=== PATIENT | female | born 1995 | race Hispanic/Latino ===

== ENCOUNTER 2024-04-16 06:48 | Emergency (ER) | payer BC ==
[2024-04-16] MEDS ORDERED: NA CHLORIDE 0.9% 1,000 ML ONE (07:36)
[2024-04-16 07:38] LABS: Absolute Eosinophils 0.1 K/uL (0-0.5); Absolute Lymphocytes (CBC) 2.7 K/uL (0.7-4.9); Absolute Monocytes 0.6 K/uL (0.1-1.3); Absolute Neutrophil 4.1 K/uL (1.8-8.0); Basophils % 0.6 % (0-1.3); Eosinophils % 1.9 % (0-4.4); Hematocrit 40.1 % (36.0-45.0); Hemoglobin 12.6 g/dL (12.0-15.0); Lymphocytes % 35.4 % (15.3-44.8); MCH 24.2 pg (27.0-35.0); MCHC 31.6 g/dL (32.0-36.0); MCV 76.6 fL (80-100); MPV 7.5 fL (7.6-11.3); Monocytes % 8.1 % (3.3-12.3); Platelets 370 thou/uL (152-406); RBC Red Blood Cell Count 5.23 M/uL (3.86-4.86); Red Cell Distribution Width 17.3 % (12.1-15.2)
[2024-04-16 07:48] LABS: Specific Gravity 1.014 (1.005-1.030); Urine Bilirubin NEGATIVE (Negative); Urine Blood Negative (Negative); Urine Clarity Clear (Clear); Urine Color Light-Yellow (Yellow); Urine Glucose NEGATIVE (Negative); Urine Ketones NEGATIVE (Negative); Urine Microscopic Reflex YN NO UMIC; Urine Nitrite NEGATIVE (Negative); Urine Protein NEGATIVE (Negative); Urine Urobilinogen Normal (Normal); Urine pH 7.5 (5.0-7.0)
[2024-04-16 07:49] LABS: Specific Gravity 1.014 (1.005-1.030)
[2024-04-16 07:54] LABS: Albumin 3.5 g/dL (3.4-5.0); Albumin/Globulin Ratio 0.8 (1.1-1.8); Anion Gap 8.3 mEq/L (5.0-15.0); Bilirubin Total 0.5 mg/dL (0.2-1.0); Globulin 4.3 g/dL (2.3-3.5); Potassium 3.3 mEq/L (3.5-5.1); Protein, Total 7.8 g/dL (6.4-8.2)
--- NOTE | 2024-04-16 08:23 | EDPHYS ---
Physician Documentation [facility] Name: Olivia Hawk Age: 28 yrs Sex: Female : 1995 Arrival Date: 04/16/2024 Time: 06:48 Bed 18 Private MD: ED Physician To Fung HPI: 04/16 07:25 This 28 yrs old Female presents to ER via Ambulatory with complaints of Nausea.rn 07:26 The patient presents to the emergency department with nausea. Onset: The rn symptoms/episode began/occurred 3 day(s) ago. Possible causes: unknown. The symptoms are aggravated by nothing. The symptoms are alleviated by nothing. Severity of symptoms: At their worst the symptoms were mild in the emergency department the symptoms are unchanged. The patient has not experienced similar symptoms in the past. Patient reports 3 days of feeling nauseous, no vomiting, no abdominal pain. Associated with very slight cough but states getting over a viral illness since 2 weeks ago. Does not feel sick. No fever. No chest pain or abdominal pain. No urinary symptoms. States supposed to start her menstrual period in a few days and does not know if she is . Also reports breast tenderness.. Historical: - Allergies: 07:14 No Known Allergies; ap3 - Home Meds: 07:14 None [Active]; ap3 - PMHx: 07:14 None; ap3 - Immunization history:: Client reports receiving the 2nd dose of the Covid vaccine, Flu vaccine is up to date. - Infectious Disease History:: Denies. - Social history:: Smoking status: Patient denies any tobacco usage or history of. - Family history:: not pertinent. - Hospitalizations: : No recent hospitalization is reported. ROS: 07:26 Constitutional: Negative for fever, chills, and weight loss, Neck: Negative for injury, rn pain, and swelling, Cardiovascular: Negative for chest pain, palpitations, and edema, Respiratory: Negative for shortness of breath, wheezing, and pleuritic chest pain, Abdomen/GI: Positive for nausea Back: Negative for injury and pain, MS/Extremity: Negative for injury and deformity, Skin: Negative for injury, rash, and discoloration, Neuro: Negative for headache, weakness, numbness, tingling, and seizure, Exam: 07:26 Constitutional: This is a well developed, well nourished patient who is awake, alert, rn and in no acute distress. Head/Face: Normocephalic, atraumatic. Eyes: Lids and lashes normal. Conjunctiva and sclera are non-icteric and not injected. Cornea within normal limits. Periorbital areas with no swelling, redness, or edema. ENT: Dry mucous membranes Neck: Neck supple. No meningismus Cardiovascular: Regular rate and rhythm. No pulse deficits. Respiratory: No increased work of breathing, no retractions or nasal flaring. Abdomen/GI: Soft, non-tender MS/ Extremity: Pulses equal, no cyanosis. Neuro: Awake and alert, GCS 15, normal gait Vital Signs: 07:11 BP 148 / 85; Pulse 74; Resp 17; Temp 98(O); Pulse Ox 100% on R/A; Weight 113.4 kg; ap3 Height 5 ft. 6 in. ; 07:46 BP 135 / 80; Pulse 70; Resp 18; Pulse Ox 99% on R/A; rs5 08:25 BP 133 / 77; Pulse 72; Resp 17; Pulse Ox 99% on R/A; rs5 07:11 Body Mass Index 40.35 (113.40 kg, 167.64 cm) ap3 MDM: 06:59 Patient medically screened. rn 08:22 Differential diagnosis: gastritis, pancreatitis, viral gastroenteritis, rn gastroenteritis, , viral illness. Data reviewed: vital signs, nurses notes, lab test result(s), and as a result, I will discharge patient. Counseling: I had a detailed discussion with the patient and/or guardian regarding the historical points, exam findings, and any diagnostic results supporting the discharge/admit diagnosis, lab results, the need for outpatient follow up, to return to the emergency department if symptoms worsen or persist or if there are any questions or concerns that arise at home. Special discussion: I discussed with the patient/guardian in detail that at this point there is no indication for admission to the hospital. It is understood, however, that if the symptoms persist or worsen the patient needs to return immediately for re-evaluation. 08:22 ED course: Urine negative. Labs unremarkable. Patient without abdominal rn tenderness or pain. I have personally reviewed all of the results, including but not limited to blood tests and imaging deemed necessary to safely discharge this patient at this time. All results given to and printed out for patient. I personally went over all the results with the patient and answered all questions. Patient will follow-up with PCP and or specialist as discussed. Return precautions given and understood.. 04/16 07:16 Order name: CBC with Diff; Complete Time: 08:00 rn 04/16 07:16 Order name: CMP; Complete Time: 08:00 rn 04/16 07:16 Order name: Lipase; Complete Time: 08:00 rn 04/16 07:16 Order name: Test, Urine; Complete Time: 08:00 rn 04/16 07:16 Order name: Urinalysis w/ reflexes; Complete Time: 08:00 rn 04/16 07:16 Order name: IV Saline Lock; Complete Time: 07:35 rn 04/16 07:16 Order name: Labs collected and sent; Complete Time: 07:35 rn Administered Medications: 07:40 Drug: NS 0.9% IV 1000 ml IV at 1000 ml once Route: IV; Rate: 1000 ml; Site: left rs5 antecubital; 08:00 Follow up: Response: No adverse reaction rs5 Disposition Summary: 04/16/24 08:23 Discharge Ordered Notes: Location: Home rn Problem: new rn Symptoms: have improved rn Condition: Stable rn Diagnosis - Nausea rn Followup: rn - With: Private Physician - When: As needed - Reason: Recheck today's complaints, Re-evaluation by your physician Discharge Instructions: - Discharge Summary Sheet rn - Nausea, Adult rn Forms: - Medication Reconciliation Form rn - Antibiotic physician general internal medicine - Prescription Opioid Use rn - Patient Portal Instructions rn - Leadership Thank You Letter rn - Work release form rs5 Prescriptions: - ondansetron 4 mg Oral Tablet,disintegrating - take 1 tablet ORAL route every 8 hours As needed; 12 tablet; Refills: 0, rn Product Selection Permitted Signatures: Dispatcher [employer] To Smith MD MD rn Prokisch, Amanda, RN RN ap3 Jamil Ramirez RN RN rs5 Corrections: (The following items were deleted from the chart) 07:25 07:25 This 28 yrs old Female presents to ER via Ambulatory with complaints of rn Nausea, Cough, Dizziness. rn
--- NOTE | 2024-04-16 08:23 | ER ---
Nurse's Notes [facility] Name: Olivia Hawk Age: 28 yrs Sex: Female : 1995 Arrival Date: 04/16/2024 Time: 06:48 Bed 18 Private MD: Diagnosis: Nausea Presentation: 04/16 07:11 Chief complaint: Patient states: she has been nauseated and getting light headed ap3 randomly for approx 3-4 days. patient states it does not relate to standing or bending over. patient reports a cough during this time. Coronavirus screen: At this time, the client does not indicate any symptoms associated with coronavirus-19. Ebola Screen: No symptoms or risks identified at this time. Initial Sepsis Screen: Does the patient meet any 2 criteria? No. Patient's initial sepsis screen is negative. Does the patient have a suspected source of infection? No. Patient's initial sepsis screen is negative. Risk Assessment: Do you want to hurt yourself or someone else? Patient reports no desire to harm self or others. Onset of symptoms was April 13, 2024. 07:11 Method Of Arrival: Ambulatory ap3 07:11 Acuity: MARISOL 3 ap3 Triage Assessment: 07:15 General: Appears in no apparent distress. Behavior is calm, cooperative, appropriate ap3 for age. Pain: Denies pain. Neuro: Level of Consciousness is awake, alert, obeys commands, Oriented to person, place, time, situation, Appropriate for age Gait is steady, Speech is normal, Facial symmetry appears normal, Reports dizziness. Cardiovascular: Patient's skin is warm and dry. Respiratory: Airway is patent Respiratory effort is even, unlabored, Respiratory pattern is regular, symmetrical. Respiratory: Reports cough that is. GI: Reports nausea. Historical: - Allergies: 07:14 No Known Allergies; ap3 - Home Meds: 07:14 None [Active]; ap3 - PMHx: 07:14 None; ap3 - Immunization history:: Client reports receiving the 2nd dose of the Covid vaccine, Flu vaccine is up to date. - Infectious Disease History:: Denies. - Social history:: Smoking status: Patient denies any tobacco usage or history of. - Family history:: not pertinent. - Hospitalizations: : No recent hospitalization is reported. Screenin:02 [facility] ED Fall Risk Assessment (Adult) History of falling in the last 3 months, rs5 including since admission No falls in past 3 months (0 pts) Confusion or Disorientation No (0 pts) Intoxicated or Sedated No (0 pts) Impaired Gait No (0 pts) Mobility Assist Device Used No (0 pt) Altered Elimination No (0 pt) Score/Fall Risk Level 0 - 2 = Low Risk Oriented to surroundings, Maintained a safe environment. 07:16 Abuse screen: Denies threats or abuse. Nutritional screening: No deficits noted. ap3 Tuberculosis screening: No symptoms or risk factors identified. Assessment: 07:02 General: Appears in no apparent distress. comfortable, Behavior is calm, cooperative. rs5 Pain: Complains of pain in head Pain does not radiate. Pain currently is 4 out of 10 on a pain scale. Quality of pain is described as aching, Is continuous. Neuro: Level of Consciousness is awake, alert, obeys commands, Oriented to person, place, time, situation. Neuro: Reports dizziness. Cardiovascular: Patient's skin is warm and dry. Respiratory: Airway is patent Respiratory effort is even, unlabored, Respiratory pattern is regular, symmetrical. Respiratory: Reports cough that is. GI: Abdomen is round non-distended, Abd is soft and non tender X 4 quads. Reports nausea. : No signs and/or symptoms were reported regarding the genitourinary system. EENT: No signs and/or symptoms were reported regarding the EENT system. Derm: Skin is intact, Skin is pink, warm \T\ dry. Musculoskeletal: Range of motion: intact in all extremities. 08:20 Reassessment: Patient and/or family updated on plan of care and expected duration. Pain rs5 level reassessed. Patient is alert, oriented x 3, equal unlabored respirations, skin warm/dry/pink. Vital Signs: 07:11 BP 148 / 85; Pulse 74; Resp 17; Temp 98(O); Pulse Ox 100% on R/A; Weight 113.4 kg; ap3 Height 5 ft. 6 in. ; 07:46 BP 135 / 80; Pulse 70; Resp 18; Pulse Ox 99% on R/A; rs5 08:25 BP 133 / 77; Pulse 72; Resp 17; Pulse Ox 99% on R/A; rs5 07:11 Body Mass Index 40.35 (113.40 kg, 167.64 cm) ap3 ED Course: 06:54 Patient arrived in ED. gm2 06:59 To Fung MD is Attending Physician. rn 07:03 Jamil Ramirez, RUMA is Primary Nurse. rs5 07:14 Triage completed. ap3 07:16 Arm band placed on right wrist. ap3 07:16 Patient has correct armband on for positive identification. Bed in low position. Call ap3 light in reach. Adult w/ patient. Provided Education on: call light and fall education. Client placed on continuous cardiac and pulse oximetry monitoring. NIBP monitoring applied. athletic monitor on. Pulse ox on. NIBP on. 07:35 Inserted saline lock: 24 gauge in left antecubital area, using aseptic technique. Blood rs5 collected. 07:45 No provider procedures requiring assistance completed. rs5 08:25 IV discontinued, intact, bleeding controlled, No redness/swelling at site. Pressure rs5 dressing applied. 08:28 Primary Nurse role handed off by Jamil Ramirez, RUMA rs5 Administered Medications: 07:40 Drug: NS 0.9% IV 1000 ml IV at 1000 ml once Route: IV; Rate: 1000 ml; Site: left rs5 antecubital; 08:00 Follow up: Response: No adverse reaction rs5 Medication: 07:46 VIS not applicable for this client. rs5 Outcome: 08:23 Discharge ordered by . rn 08:25 Discharged to home ambulatory, rs5 08:25 Condition: stable 08:25 Discharge instructions given to patient, family, Instructed on discharge instructions, follow up and referral plans. Demonstrated understanding of instructions, follow-up care, 08:25 Patient left the ED. rs5 08:34 Patient left the ED. rs5 Signatures: To Fung MD MD rn Prokisch, Amanda RN RN ap3 Jamil Ramirez, RUMA RN rs5 Ariadne Sanchez gm2
[2024-04-16 08:46] VITALS: BP 133/77; TEMP 98; O2SAT 99
== END 2024-04-16 08:34 | disposition home or self-care (01) ==
LOC: ER 06:48
DX: R11.0 Nausea (principal)
CPT/HCPCS: 85025; 36415; 81025; 81003; 83690; 80053; J7030; 99285

== ENCOUNTER 2024-10-07 18:59 | Emergency (ER) | payer BC ==
--- OUTSIDE RECORDS SUMMARY | 2024-10-07 19:01 | XMS REPORT | Continuity of Care Document ---
Author Name Unknown Address [address] [facility] [address] [place] [address] [facility] thconnect Address [address] [facility]. [address] [place] [address] Care Team Providers Care Aircraft Line Assembler Name Role Phone Pcp, Patient Does Not Have A Primary Care Physic rebekah AMELIE WALTER Attending Clinician Unavailable AMELIE WALTER Attending Clinician Unavailable ALICE BARNEY Attending Clinician Unavailable Amelie Walter MD Attending Clinician KARY VSÁQUEZ Attending Clinician Unavailable KARY VÁSQUEZ Attending Clinician Unavailable Ultrasound, Ang-Mfm Attending Clinician Unavaila ble Kary Vásquez DO Attending Clinician [phone] Alice Barney DNP Attending Clinician [phone], [facility] Attending Clinician Unavailable Payers Payer Name Policy Type Policy Number Effective Date Expirati on Date Source [facility] [place] [place] - OUT OF STATE [id number] 2021 00:00:00 [facility] [id number] 2024 00:00:00 MEDICAID [facility] [id number] 2024 00:00:00 Problems Condition Name Condition Details Condition Category Status Onset Date Resolution Date Last Treatment Date Treating Clinician Comments Source High-risk in second trimester High-risk in second trimester Disease Active - 00:00: 00 [facility] BMI 45.0-49.9, adult BMI 45.0-49.9, adult Disease Active 06-10 00:00: 00 [facility] Nausea Nausea Disease Active 06-10 00:00: 00 [facility] Allergies, Adverse Reactions, Alerts Allergy Name Allergy Type Status Severity Reaction(s) Onset Date Inactive Date Treating Clinician Comments Source NO KNOWN ALLERGIE S Drug Class Active [facility] Social History Social Habit Start Date Stop Date Quantity Comments Source ASSERTION 2024-05-02 00:00:00 [facility] beverage intake 2024-10-01 00:00:00 2024-10-01 00:00:00 Ex-drinker (finding) [facility] Tobacco use and exposure 2024-06-10 00:00:00 2024-06-10 00:00:00 Smokeless tobacco non-user [facility] History of Social function 2024-06-10 00:00:00 2024-06-10 00:00:00 [facility] Sex assigned at 1995 00:00:00 1995 00:00:00 [facility] Smoking Status Start Date Stop Date Source Never smoked tobacco [facility] Medications Ordered Medication Name Filled Medication Name Start Date Stop Date Current Medication? Ordering Clinician Indication Dosage Frequency Signature (SIG) Comments Components Source azithromyci n 500 mg tablet 06-11 00:00: 00 06-12 04:59 :00 No [id number] 1000mg Take 2 tablets by mouth once now for 1 dose. [facility] pyridoxine, VITAMIN B-6, (VITAMIN B-6) 25 mg tablet 06-10 00:00: 00 10-01 00:00 :00 No [id number] 25mg Take 1 tablet by mouth every 6 (six) hours as needed for Nausea and Vomiting (N/V). [facility] doxylamine (UNISOM, DOXYLAMINE, ) 25 mg tablet 06-10 00:00: 00 10-01 00:00 :00 No [id number] 25mg Take 1 tablet by mouth at bedtime as needed for Nausea and Vomiting (N/V). [facility] Immunizations Ordered Immunization Name Filled Immunization Name Date Status Comments Source Flu Injectable MDCK Pres-Free (FLUCELVAX) 2024-07-08 00:00:00 Completed [facility] Flu Injectable MDCK Pres-Free (FLUCELVAX) 2024-07-08 00:00:00 Completed [facility] Flu Injectable MDCK Pres-Free (FLUCELVAX) Unknown Completed [facility] Vital Signs Vital Name Observation Time Observation Value Comments S ource Systolic blood pressure 2024-10-01 17:17:00 134 mm[Hg] [facility] Diastolic blood pressure 2024-10-01 17:17:00 70 mm[Hg] [facility] Heart rate 2024-10-01 17:17:00 93 /min [facility] Respiratory rate 2024-10-01 17:17:00 18 /min [facility] Body height 2024-10-01 17:17:00 167.6 cm [facility] Body weight 2024-10-01 17:17:00 140.615 kg [facility] BMI 2024-10-01 17:17:00 50.04 kg/m2 [facility] Systolic blood pressure 2024-09-03 15:00:00 134 mm[Hg] [facility] Diastolic blood pressure 2024-09-03 15:00:00 73 mm[Hg] [facility] Heart rate 2024-09-03 15:00:00 89 /min [facility] Body temperature 2024-09-03 15:00:00 36.44 Svetlana [facility] Respiratory rate 2024-09-03 15:00:00 18 /min [facility] Body height 2024-09-03 15:00:00 167.6 cm [facility] Body weight 2024-09-03 15:00:00 137.349 kg [facility] BMI 2024-09-03 15:00:00 48.87 kg/m2 [facility] Systolic blood pressure 2024-08-06 19:04:00 138 mm[Hg] [facility] Diastolic blood pressure 2024-08-06 19:04:00 78 mm[Hg] [facility] Heart rate 2024-08-06 19:04:00 104 /min [facility] Respiratory rate 2024-08-06 19:04:00 18 /min [facility] Body height 2024-08-06 19:04:00 167.6 cm [facility] Body weight 2024-08-06 19:04:00 137.893 kg [facility] BMI 2024-08-06 19:04:00 49.07 kg/m2 [facility] Systolic blood pressure 2024-07-08 13:31:00 131 mm[Hg] [facility] Diastolic blood pressure 2024-07-08 13:31:00 75 mm[Hg] [facility] Heart rate 2024-07-08 13:31:00 90 /min [facility] Body temperature 2024-07-08 13:31:00 36.39 Svetlana [facility] Body height 2024-07-08 13:31:00 167.6 cm [facility] Body weight 2024-07-08 13:31:00 135.988 kg [facility] BMI 2024-07-08 13:31:00 48.39 kg/m2 [facility] Systolic blood pressure 2024-06-10 19:38:00 133 mm[Hg] [facility] Diastolic blood pressure 2024-06-10 19:38:00 83 mm[Hg] [facility] Heart rate 2024-06-10 19:38:00 104 /min [facility] Body temperature 2024-06-10 19:38:00 36.61 Svetlana [facility] Respiratory rate 2024-06-10 19:38:00 18 /min [facility] Body height 2024-06-10 19:38:00 167.6 cm [facility] Body weight 2024-06-10 19:38:00 139.345 kg [facility] BMI 2024-06-10 19:38:00 49.58 kg/m2 [facility] Procedures Procedure Date / Time Performed Performing Clinician Source POCT URINALYSIS W/O SPECIFIC GRAVITY 2024-10-01 00:00:00 Amelie Walter [facility] SECOND AND THIRD TRIMESTER ULTRASOUND 2024-09-15 21:13:00 Amelie Walter [facility] POCT URINALYSIS W/O SPECIFIC GRAVITY 2024-09-03 00:00:00 Ailce Barney [facility] POCT URINALYSIS W/O SPECIFIC GRAVITY 2024-08-06 00:00:00 Amelie Walter [facility] FLU VACC ([id number]), 6 MO-64 YRS, .5ML, IM, TIV (FLUCELVAX) 2024-07-08 13:41:19 Alice Barney [facility] POCT URINALYSIS W/O SPECIFIC GRAVITY 2024-07-08 00:00:00 Alice Barney [facility] 1 HR GLUCOSE TOLERANCE TEST 2024-06-25 14:37:00 Amelie Walter [facility] GLUCOSE FASTING 2024-06-25 13:37:00 Amelie Walter [facility] US OB TRANSVAGINAL 2024-06-10 21:08:[address] [facility] POCT TEST 2024-06-10 00:00:00 Amelie Walter [facility] POCT URINALYSIS W/O SPECIFIC GRAVITY 2024-06-10 00:00:00 Amelie Walter [facility] Encounters Start Date/Time End Date/Time Encounter Type Admission Type Attending [facility] Care Facility Care Department Encounter ID Source 2024-10-01 11:00:00 2024-10-01 11:36:33 Outpatient R AMELIE WALTER VIEN [facility] [id number] [facility] 2024-10-01 11:00:00 2024-10-01 11:36:33 Routine Visit Amelie Walter [facility] 1.2.840.114 350.1.13.10 4.2.7.2.686 [id number] 134 [id number] [facility] 2024-09-15 14:00:00 2024-09-15 15:42:50 Outpatient P LESLYEKARY KARY [facility] [id number] [facility] 2024-09-15 14:00:00 2024-09-15 15:42:50 Cloth Handler Visit Ultrasound, [facility] Kary Vásquez [facility] SUGAR REFINERY [facility] 1.2.840.114 350.1.13.10 4.2.7.2.686 [id number] [facility] 2024-09-08 00:00:00 2024-09-08 10:07:42 Telephone [facility] 1..840.114 350.1.13.10 4.2.7.2.686 [id number] 134 [id number] [facility] 2024-09-05 11:30:00 2024-09-05 11:45:00 Cloth Handler Visit 2, [facility] Amelie Walter 2, Adc Lab [facility] 1.2.840.114 350.1.13.10 4.2.7.2.686 [id number] [facility] 2024-09-05 11:30:00 2024-09-05 11:30:00 Outpatient R AMELIE WALTER VIEN [facility] [id number] [facility] 2024-09-03 09:45:00 2024-09-03 10:28:04 Outpatient R ALICE BARNEY [facility] [id number] [facility] 2024-09-03 09:45:00 2024-09-03 10:28:04 Routine Visit Alice Barney [facility] 1..840.114 350.1.13.10 4.2.7.2.686 [id number] [facility] 2024-08-06 14:00:00 2024-08-06 14:27:14 Outpatient R WALTER AMELIE MACKAY [facility] [id number] [facility] 2024-08-06 14:00:00 2024-08-06 14:27:14 Routine Visit Amelie Walter [facility] 1.2.840.114 350.1.13.10 4.2.7.2.686 [id number] [facility] 2024-07-08 08:30:00 2024-07-08 08:51:19 Outpatient R ALICE BARNEY [facility] [id number] [facility] 2024-07-08 08:30:00 2024-07-08 08:51:19 Routine Visit Alice Barney [facility] 1.2.840.114 350.1.13.10 4.2.7.2.686 [id number] [facility] 2024-06-25 08:00:00 2024-06-25 08:15:00 Cloth Handler Visit 2, [facility] Lab WalterMariluzcheryl Alvarez 2, [facility] 1.2.840.114 350.1.13.10 4.2.7.2.686 [id number] [facility] 2024-06-25 08:00:00 2024-06-25 08:00:00 Outpatient R WALTERMARILUZAMELIE BARRETT [facility] [id number] [facility] 2024-06-19 00:00:00 2024-06-19 15:25:30 Case Management [facility]elie [facility] 1.2.840.114 350.1.13.10 4.2.7.2.686 [id number] [facility] 2024-06-19 09:30:00 2024-06-19 09:45:00 Cloth Handler Visit 2, Adc Lab Amelie Walter 2, Adc Lab [facility] 1.2.840.114 350.1.13.10 4.2.7.2.686 [id number] [facility] 2024-06-19 09:30:00 2024-06-19 09:30:00 Outpatient R AMELIE WALTER VIEN [facility] [id number] [facility] 2024-06-12 00:00:00 2024-06-12 12:03:45 Telephone Amelie Walter [facility] 1.2.840.114 350.1.13.10 4.2.7.2.686 [id number] [facility] 2024-06-11 00:00:00 2024-06-11 18:53:17 Case Management Amelie Walter [facility] 1.2.840.114 350.1.13.10 4.2.7.2.686 [id number] [facility] 2024-06-10 14:30:00 2024-06-10 16:56:14 Outpatient R AMELIE WALTER VIEN [facility] [id number] [facility] 2024-06-10 14:30:00 2024-06-10 15:00:00 Initial Visit Amelie Walter [facility] 1.2.840.114 350.1.13.10 4.2.7.2.686 [id number] [facility] Results Test Description Test Time Test Comments Results Result Co mments Source [facility] w[facility]o Specific [id number] 14:58:00* Test Item Value Reference Range Interpretation Comme nts POCT PH U (test code = 3254) n/a 5-8 POCT U LEUK EST (test code = 3263) n/a Negative - Negative POCT U NIT (test code = 3262) n/a Negative - Negati ve POCT U PROT (test code = 3259) negative Negative - Negat bryant POCT U GLU (test code = 3256) normal Negative - Negati ve POCT U KETONE (test code = 3258) n/a Negative - Neg ative POCT U BLD (test code = 3257) n/a Negative - Negati ve [facility] Urinalysis w/o Specific [id number] 19:06:00* Test Item Value Reference Range Interpretation Comme nts POCT PH U (test code = 3254) n/a 5-8 POCT U LEUK EST (test code = 3263) n/a Negative - Negative POCT U NIT (test code = 3262) n/a Negative - Negati ve POCT U PROT (test code = 3259) Negative Negative - Negat bryant POCT U GLU (test code = 3256) Negative Negative - Negati ve POCT U KETONE (test code = 3258) n/a Negative - Neg ative POCT U BLD (test code = 3257) n/a Negative - Negati ve [facility] Urinalysis w/o Specific [id number] 13:30:00* Test Item Value Reference Range Interpretation Comme nts POCT PH U (test code = 3254) n.a 5-8 POCT U LEUK EST (test code = 3263) n.a Negative - Negative POCT U NIT (test code = 3262) negative Negative - Negati ve POCT U PROT (test code = 3259) negative Negative - Negat bryant POCT U GLU (test code = 3256) n.a Negative - Negati ve POCT U KETONE (test code = 3258) n.a Negative - Neg ative POCT U BLD (test code = 3257) n.a Negative - Negati ve [facility] [id number] 14:46:54* Test Item Value Reference Range Interpretation Comme nts GLU FASTNG (test code = 1019438129) 94 mg/dL 70-110 Lab Interpretation (test cod e = 71769-9) Normal [facility] [id number] 19:45:00* Test Item Value Reference Range Interpretation Comme nts POCT PREG (test code = 1605) Positive On board controls acceptable with C Line (test code = 3574) Yes POCT PREG LOT # (test code = 3575) POCT PREG TEST DATE ( test code = 3576) [facility] w/o Specific [id number] 19:45:00* Test Item Value Reference Range Interpretation Comme nts POCT PH U (test code = 3254) n/a 5-8 POCT U LEUK EST (test code = 3263) n/a Negative - Negative POCT U NIT (test code = 3262) n/a Negative - Negati ve POCT U PROT (test code = 3259) negative Negative - Negat bryant POCT U GLU (test code = 3256) normal Negative - Negati ve POCT U KETONE (test code = 3258) n/a Negative - Neg ative POCT U BLD (test code = 3257) n/a Negative - Negati ve [facility] Notes Date/Time Note Provider Source 2024-10-01 11:00:00 Age: [age] year old GA: 23w5d -Left nipple discharge: Small amount, clear. Was wearing tight bras. Discussed well fitting bras and no breast stimulation. Continue to monitor. - + CT on 06/10/24: JON negative on 08/06/2024 -Anatomy scan on 09/15/2024: The biometry was consistent with the provided dating. However, EFW and AC > 97th %tile. No obvious malformations or markers of aneuploidy were noted -->> follow-up ultrasound on 10/21/24 -Maternal serum AFP negative -28-week labs and serologies ordered -follow-up in 4 wks for PN with SUPERVISOR [employer] MA[employer] - follow-up in 7 wks for PN with Walter [facility] 2024-09-08 10:06:40 Name and verified, pt was wanting MsAFP results, pt informed of negative results. Pt verbalized understanding. Mary Grace Gar RN 09/08/2024 10:07 AM S CHASER Mary Grace Gar RN [facility] 2024-09-08 09:08:12 Pt calling to go over results. SSA Otoole [facility] 2024-09-05 11:30:00 Images from the original note were not included. Venipuncture collection performed by clean technique on the left anticubitus. Total of 1 attempts were made. Slight pressure and a bandage/dressing were applied to the site(s). The patient experienced no complications. The following specimens were processed according to instructions and sent to [facility] laboratories per lab order on 09/05/24: LT BLUE SST 1 RED LAV PPT DK GREEN (LiHep) DK GREEN (SodH) CEDILLO DK BLUE (K2) DK BLUE (S) ACD Blood Culture NIPT/NTD [facility] 2024-09-03 09:45:00 Age: [age] year old GA: 19w5d ASSESSMENT: Domingo Sun is a 28 year old at 19w5d who presents for routine visit. Patient Active Problem List Diagnosis High-risk in second trimester BMI 45.0-49.9, adult Nausea PLAN 1. High-risk in second trimester 2. 19 weeks gestation of - POCT Urinalysis w/o Specific [place]- negative glucose and protein 3. BMI 45.0-49.9, adult Healthy diet and exercises encouraged 4. Susceptible to varicella (non-immune), currently May vaccinate PP MsAFP ordered -Anatomy US - scheduled for 09/15 labor precautions reviewed -All questions answered F/u with Dr. Walter in 4 weeks or prn Alice Barney DNP, FURNACE COMBUSTION TESTER-BC 09/03/2024 at 9:56 PM [facility] 2024-09-03 09:45:00 Addended by: LORI SOLIMAN MA on: 09/05/2024 11:56 AM Modules accepted: Orders Lori Soliman MA [facility] 2024-08-06 14:00:00 Age: [age] year old GA: 15w5d -Doing well without concerns - NOB labs wnl except for VZV NI and abnormal 1 hr, 3 hr wnl. Healthy diet and exercises discussed. - + CT on 06/10/24: JON sent today - Declined aneuploidy and MsAFP screening - Anatomy scan ordered - follow-up in 4 wks for PN with SUPERVISOR [employer] MA[employer] - follow-up in 8 wks for PN with Walter [facility] 2024-07-08 08:30:00 Age: [age] year old GA: 11w4d ASSESSMENT: Domingo Sun is a 28 year old at 11w4d who presents for routine visit. Patient Active Problem List Diagnosis High-risk in first trimester BMI 45.0-49.9, adult Nausea PLAN 1. High-risk in first trimester 2. 11 weeks gestation of - POCT Urinalysis w/o Specific [place]- negative protein and glucose 3. Flu vaccine need - FLU VACC ([id number]), 6 MO-64 YRS, .5ML, IM, TIV (FLUCELVAX) 4. BMI 45.0-49.9, adult Healthy diet and exercises encouraged -NIPT/panorama testing - Declines genetic testing. -All questions addressed F/u with Dr. Walter in 4 weeks or prn Alice Barney DNP, FURNACE COMBUSTION TESTER-BC 07/08/2024 at 11:39 AM [facility] 2024-06-25 08:00:00 Images from the original note were not included. Loaded pt w 100gm glucola, no issues Draw time: 0938, 1038, 1138 Venipuncture collection performed by clean technique on the left anticubitus. Total of 1 attempts were made. Slight pressure and a bandage/dressing were applied to the site(s). The patient experienced no complications. The following specimens were processed according to instructions and sent to [facility] laboratories per lab order on 06/25/2024 : LT BLUE SST 1 RED LAV PPT DK GREEN (LiHep) DK GREEN (SodH) CEDILLO DK BLUE (K2) DK BLUE (S) ACD Blood Culture NIPT/NTD T [facility] 2024-06-25 08:00:00 Images from the original note were not included. Venipuncture collection performed by clean technique on the left anticubitus. Total of 1 attempts were made. Slight pressure and a bandage/dressing were applied to the site(s). The patient experienced no complications. The following specimens were processed according to instructions and sent to [facility] [employer] per lab order on 06/25/2024 : LT BLUE SST 1 RED LAV PPT DK GREEN (LiHep) DK GREEN (SodH) CEDILLO DK BLUE (K2) DK BLUE (S) ACD Blood Culture NIPT/NTD T [facility] 2024-06-25 08:00:00 Images from the original note were not included. Venipuncture collection performed by clean technique on the left anticubitus. Total of 1 attempts were made. Slight pressure and a bandage/dressing were applied to the site(s). The patient experienced no complications. The following specimens were processed according to instructions and sent to [facility] [employer] per lab order on 06/25/2024 : LT BLUE SST 1 RED LAV PPT DK GREEN (LiHep) DK GREEN (SodH) CEDILLO DK BLUE (K2) DK BLUE (S) ACD Blood Culture NIPT/NTD T [facility] 2024-06-25 08:00:00 Images from the original note were not included. Venipuncture collection performed by clean technique on the left anticubitus. Total of 1 attempts were made. Slight pressure and a bandage/dressing were applied to the site(s). The patient experienced no complications. The following specimens were processed according to instructions and sent to [facility] laboratories per lab order on 06/25/2024 : LT BLUE SST 1 RED LAV PPT DK GREEN (LiHep) DK GREEN (SodH) CEDILLO DK BLUE (K2) DK BLUE (S) ACD Blood Culture NIPT/NTD T [facility] 2024-06-19 09:30:00 Loaded pt w 50gm lemon [place] glucola, no issues. Draw time: 1030 T [facility] 2024-06-19 09:30:00 Images from the original note were not included. Venipuncture collection performed by clean technique on the left anticubitus. Total of 1 attempts were made. Slight pressure and a bandage/dressing were applied to the site(s). The patient experienced no complications. The following specimens were processed according to instructions and sent to [facility] laboratories per lab order on 06/19/2024 : LT BLUE SST 4 RED 1 LAV 2 PPT DK GREEN (LiHep) DK GREEN (SodH) CEDILLO DK BLUE (K2) DK BLUE (S) ACD Blood Culture NIPT/NTD Patient has been identified by and was provided with cup, antiseptic towelette, and clean catch instructions. 1 urine specimen(s) sent. Unpreserved Urine Culture 1 Aptima tube Other urine T [facility] 2024-06-12 12:00:42 Returned call, verified name and . Patient had questions regarding how partner testing would be, informed patient to call PCP office or [facility] to verify how male testing for STD's is done. Patient verbalized understanding. Lori Soliman MA [facility] 2024-06-12 10:34:54 The patient mentioned that she tested positive for an STD and would like to know how her will be tested. Will the testing be conducted through a urine sample or a blood draw? Lacy Guadarrama [facility] 2024-06-10 14:30:00 Age: [age] year old GA: 7w4d Mother: Kaylene Valladares -Ariadne [id number] -Discussed avoid triggers -Vitamin B6/Unisom prescribed Body mass index is 49.58 kg/m?. -Will discuss low-dose aspirin at next visit -Will order detailed anatomy scan Transvaginal USG for FHT: Single live IUP measured 7 3/7 weeks, consistent with LMP. Will date by Patient's last menstrual period was 04/18/2024 (exact date). unless clinically indicated otherwise Last Pap was around 4 years ago. Pap collected today. New OB labs today. Discussed do's and don'ts of , safe foods, safe medications. Reviewed Zika virus precautions. I discussed the call schedule and that I might not be the physician delivering her. I discussed I deliver my patients at [facility]. Expectations for weight gain this include 11-20 pounds. Encouraged to call if have any additional questions or concerns. Discussed aneuploidy and carrier screening; patient will think about it. Discussed with patient that she can have HEALTHY support with her during her delivery (which is subject to change depends on the COVID pandemic) Next visit in 4 week for visit with [employer] Follow-up in 8 weeks for visit with [facility]
[2024-10-07 19:58] LABS: SARS-CoV-2 Antigen CONTROL BLUE LINE VIS/BG OK; SARS-CoV-2 Antigen Rapid Res Negative (Negative)
--- NOTE | 2024-10-07 20:52 | EDPHYS ---
Physician Documentation [facility] Name: Olivia Hawk Age: 29 yrs Sex: Female : 1995 Arrival Date: 10/07/2024 Time: 18:59 Bed IW1 Private MD: ED Physician Freddie Jones HPI: 10/07 21:17 This 29 yrs old Female presents to ER via Ambulatory with complaints of 24wks kb , Sore Throat, Fever. 21:17 Patient is a 29-year-old female who presents for cough, congestion, sore throat and kb subjective fever that started yesterday. States she is concerned because she is 24 weeks so she wanted to get checked out. Denies vaginal bleeding, abdominal pain. CORRESPONDENCE DICTATOR: 19:13 LMP 04/18/2024, Verified, EDC 01/23/2025, Gestational age from LMP: 24 weeks 5 lg3 days Historical: - Allergies: 19:13 No Known Allergies; lg3 - Home Meds: 19:13 None [Active]; lg3 - PMHx: 19:13 None; lg3 - PSHx: 19:13 None; lg3 - Immunization history:: Adult Immunizations up to date. - Infectious Disease History:: Denies. - Social history:: Smoking status: Patient denies any tobacco usage or history of. Patient/guardian denies using alcohol, street drugs. ROS: 21:17 Constitutional: As per HPI kb Exam: 21:17 Constitutional: This is a well developed, well nourished patient who is awake, alert, kb and in no acute distress. Head/Face: Normocephalic, atraumatic. ENT: Moist Mucous membranes Cardiovascular: Regular rate Respiratory: Respirations even and unlabored. No increased work of breathing. Talking in full sentences Skin: Warm, dry with normal turgor. Normal color. MS/ Extremity: Pulses equal, no cyanosis. Neurovascular intact. Full, normal range of motion. Neuro: Awake and alert, GCS 15, oriented to person, place, time, and situation. Vital Signs: 19:07 BP 135 / 76; Pulse 118; Resp 17 S; Temp 98.3(O); Pulse Ox 100% on R/A; Weight 139.71 kg lg3 (R); Height 5 ft. 6 in. (R); Pain 0/10; 20:59 BP 131 / 71; Pulse 101; Resp 17 S; Temp 98.1(O); Pulse Ox 100% on R/A; lg3 19:07 Body Mass Index 49.71 (139.71 kg, 167.64 cm) lg3 19:07 Pain Scale: Adult lg3 MDM: 19:04 Medical Screening Exam initiated kb 21:18 Differential diagnosis: flu, strep, covid, uri. Data reviewed: vital signs, nurses kb notes. Counseling: I had a detailed discussion with the patient and/or guardian regarding the historical points, exam findings, and any diagnostic results supporting the discharge/admit diagnosis, lab results, the need for outpatient follow up, a family practitioner, to return to the emergency department if symptoms worsen or persist or if there are any questions or concerns that arise at home. 10/07 19:10 Order name: Flu; Complete Time: 20:00 kb 10/07 19:10 Order name: Strep; Complete Time: 20:00 kb 10/07 19:10 Order name: SARS-COV-2 Antigen Rapid; Complete Time: 20:00 kb 10/07 20:01 Order name: Throat Culture EDMS Administered Medications: No medications were administered Disposition Summary: 10/07/24 20:52 Discharge Ordered Notes: Location: Home kb Condition: Stable kb Diagnosis - Acute upper respiratory infection, unspecified kb Followup: kb - With: Emergency Department - When: As needed - Reason: Worsening of condition Followup: kb - With: Private Physician - When: 2 - 3 days - Reason: Recheck today's complaints, Continuance of care, Re-evaluation by your physician Discharge Instructions: - Discharge Summary Sheet kb - Upper Respiratory Infection, Adult, [id number] kb Forms: - Medication Reconciliation Form kb - Antibiotic Education kb - Prescription Opioid Use kb - Patient Portal Instructions kb - Leadership Thank You Letter kb Signatures: Dispatcher [employer] Dina Reyes FNP-C FNP-Tonya Turk, RN RN lg3
--- NOTE | 2024-10-07 20:52 | ER ---
Nurse's Notes [facility] Name: Olivia Hawk Age: 29 yrs Sex: Female : 1995 Arrival Date: 10/07/2024 Time: 18:59 Bed IW1 Private MD: Diagnosis: Acute upper respiratory infection, unspecified Presentation: 10/07 19:07 Chief complaint: Patient states: sore throat, cough, congestion and warm feeling since lg3 yesterday. Coronavirus screen: Client denies travel out of the [place] in the last 14 days. Client presents with at least one sign or symptom that may indicate coronavirus-19. Standard/surgical mask placed on the client. Ebola Screen: No symptoms or risks identified at this time. Initial Sepsis Screen: Does the patient meet any 2 criteria? No. Patient's initial sepsis screen is negative. Does the patient have a suspected source of infection? No. Patient's initial sepsis screen is negative. Risk Assessment: Do you want to hurt yourself or someone else? Patient reports no desire to harm self or others. Onset of symptoms was October 06, 2024. 19:07 Method Of Arrival: Ambulatory lg3 19:07 Acuity: MARISOL 4 lg3 Triage Assessment: 19:13 General: Appears in no apparent distress. comfortable, Behavior is calm, cooperative. lg3 Pain: Denies pain. EENT: No deficits noted. Reports nasal congestion nasal discharge. Neuro: No deficits noted. Hutchison Agitation-Sedation Scale (RASS): 0 - Alert and Calm Level of Consciousness is awake, alert, obeys commands, Oriented to person, place, time, situation. Cardiovascular: No deficits noted. Denies chest pain, shortness of breath, Capillary refill < 3 seconds Clubbing of nail beds is absent JVD is absent Patient's skin is warm and dry. Respiratory: No deficits noted. Reports cough that is Airway is patent Respiratory effort is even, unlabored, Respiratory pattern is regular, symmetrical, Breath sounds are clear bilaterally. GI: No deficits noted. No signs and/or symptoms were reported involving the gastrointestinal system. : No signs and/or symptoms were reported regarding the genitourinary system. Derm: No deficits noted. No signs and/or symptoms reported regarding the dermatologic system. Skin is intact, is healthy with good turgor, Skin is dry, Skin is normal, Skin temperature is warm. Musculoskeletal: No deficits noted. No signs and/or symptoms reported regarding the musculoskeletal system. Circulation, motion, and sensation intact. Range of motion: intact in all extremities. COAL WEIGHER: 19:13 LMP 04/18/2024, Verified, EDC 01/23/2025, Gestational age from LMP: 24 weeks 5 lg3 days Historical: - Allergies: 19:13 No Known Allergies; lg3 - Home Meds: 19:13 None [Active]; lg3 - PMHx: 19:13 None; lg3 - PSHx: 19:13 None; lg3 - Immunization history:: Adult Immunizations up to date. - Infectious Disease History:: Denies. - Social history:: Smoking status: Patient denies any tobacco usage or history of. Patient/guardian denies using alcohol, street drugs. Screenin:15 [facility] ED Fall Risk Assessment (Adult) History of falling in the last 3 months, lg3 including since admission No falls in past 3 months (0 pts) Confusion or Disorientation No (0 pts) Intoxicated or Sedated No (0 pts) Impaired Gait No (0 pts) Mobility Assist Device Used No (0 pt) Altered Elimination No (0 pt) Score/Fall Risk Level 0 - 2 = Low Risk Oriented to surroundings, Maintained a safe environment, Educated pt \T\ family on fall prevention, incl call for assistance when getting out of bed, Assessed \T\ reinforced patient's understanding of fall precautions. Abuse screen: Denies threats or abuse. Denies injuries from another. Nutritional screening: No deficits noted. Tuberculosis screening: No symptoms or risk factors identified. Assessment: 19:15 General: see triage assessment. Respiratory: No deficits noted. Airway is patent lg3 Trachea midline Respiratory effort is even, unlabored, Respiratory pattern is regular, symmetrical, Breath sounds are clear bilaterally. 20:59 Reassessment: Patient appears in no apparent distress at this time. No changes from lg3 previously documented assessment. Patient and/or family updated on plan of care and expected duration. Pain level reassessed. Patient is alert, oriented x 3, equal unlabored respirations, skin warm/dry/pink. 21:00 EENT: Throat is clear is pink. lg3 Vital Signs: 19:07 BP 135 / 76; Pulse 118; Resp 17 S; Temp 98.3(O); Pulse Ox 100% on R/A; Weight 139.71 kg lg3 (R); Height 5 ft. 6 in. (R); Pain 0/10; 20:59 BP 131 / 71; Pulse 101; Resp 17 S; Temp 98.1(O); Pulse Ox 100% on R/A; lg3 19:07 Body Mass Index 49.71 (139.71 kg, 167.64 cm) lg3 19:07 Pain Scale: Adult lg3 ED Course: 19:01 Patient arrived in ED. mr 19:04 D[facility] Borges [facility]-C [facility] kb 19:04 Freddie Jones MD is Attending Physician. kb 19:13 Triage completed. lg3 19:13 Arm band placed on right wrist. lg3 19:15 Patient taken to lobby, ambulatory, steady gait. lg3 19:15 Patient has correct armband on for positive identification. lg3 19:15 COVID swab sent to lab. Flu and/or RSV swab sent to lab. Strep swab sent to lab. lg3 20:59 No provider procedures requiring assistance completed. Patient did not have IV access lg3 during this emergency room visit. Administered Medications: No medications were administered Medication: 19:15 VIS not applicable for this client. lg3 Outcome: 20:52 Discharge ordered by . kb 20:59 Discharged to home ambulatory, with family, lg3 20:59 Condition: stable 20:59 Discharge instructions given to patient, Instructed on discharge instructions, follow up and referral plans. Demonstrated understanding of instructions, follow-up care, 21:00 Patient left the ED. lg3 Signatures: Dina Borges FNP-C FNP-Katelyn Lara, Ameya Reg Tonya Galvez, RN RN lg3
[2024-10-08 03:03] VITALS: O2SAT 100
[2024-10-08 03:04] VITALS: BP 131/71; TEMP 98.1
== END 2024-10-07 21:00 | disposition home or self-care (01) ==
LOC: ER 18:59
DX: O99.512 Diseases of the respiratory system complicating pregnancy, second trimester (principal); Z3A.24 24 weeks gestation of pregnancy; Z11.52 Encounter for screening for COVID-19
CPT/HCPCS: 36415; 87070; 87081; 87804; 87811; 99283